=== PATIENT | female | born 1985 | race Two or more races ===

== ENCOUNTER 2020-12-20 15:38 | Emergency (ER) | payer MEDICAID, SELFPAY ==
[~2020-12-20] VITALS: Ht 162.6 cm; Wt 61.2 kg
--- NOTE | 2020-12-20 15:40 | NUR ---
Pt walked in to ER for assessment to r/o covid, no complaints at this time. V/S stable, no distress noted
--- NOTE | 2020-12-20 15:40 | NUR ---
ER Dr. Nichole at bedside examining patient.
--- NOTE | 2020-12-20 15:40 | NUR ---
Patient to ER bed 7 to gown for evaluation. Side rails up.
[2020-12-20 15:53] VITALS: BP_SYST 128
--- NOTE | 2020-12-20 17:20 | NUR ---
Patient given written and verbal discharge instructions and verbalizes understanding. ER MD discussed with patient the results and treatment provided. Patient in stable condition. ID arm band removed. No prescriptions given. Patient educated on pain management and to follow up with PMD. Pain Scale 0. Opportunity for questions provided and answered. Medication side effect fact sheet provided.
[2020-12-20 17:25] VITALS: BP_SYST 128
== END 2020-12-20 17:20 | disposition home or self-care (01) ==
LOC: MERGE 15:38 → SED 15:38
DX: J45.901 Unspecified asthma with (acute) exacerbation (principal); Z20.822 Contact with and (suspected) exposure to COVID-19
CPT/HCPCS: 36415; 99283